=== PATIENT | female | born 1995 | race Caucasian/White ===

== ENCOUNTER → 2019-07-25 17:41 | Outpatient (CLI) | payer OTHER, SELFPAY ==
--- NOTE | 2019-07-25 17:43 | DI.US.S_ITS ---
PROCEDURE: US OB <= 14 WEEKS FETUS INDICATIONS: VIABILITY AND DATING OUTSIDE/PRIOR DATING DATA: Last menstrual period (LMP): 05/09/19. LMP-based estimated date of delivery (LORRAINE): 02/13/20. First dating scan (date and location): This study. Estimated date of delivery (LORRAINE) from first dating scan: 02/12/20, plus or -5 days. TECHNIQUE: Real-time scanning was performed of the fetus and maternal pelvic organs, with image documentation. COMPARISON: None. FINDINGS: Embryo: Heart rate 163 beats per minute, maternal cervical length 5 cm. [place]-rump length 4.3 cm which correlates with a gestational age of 11 weeks 1 day, plus or -5 days. Measurement variability in dating: +/- 4 weeks by LMP, +/- 7 days by mean sac diameter (use before 6 weeks gestation if crown-rump length not able to be measured), +/- 5 days by crown-rump length (up to 8 weeks 6 days gestation), +/- 7 days by crown-rump length (up to 13 weeks 6 days gestation). Maternal organs: Ovaries not seen.. Limited images through the kidneys demonstrate no hydronephrosis. IMPRESSION: Single living intrauterine gestation with a delivery date projected B. centered on 02/12/20, plus or -5 days. Followup anatomic survey at approximately 20 weeks gestation is recommended. Dictated by: Eliceo Miranda M.D. on 07/26/2019 at 8:40 Approved by: Eliceo Miranda M.D. on 07/26/2019 at 8:43
== END ==
PROVIDERS: Referring Provider Obstetrics & Gynecology; Visit Provider Obstetrics & Gynecology
DX: Z36.87 Encounter for antenatal screening for uncertain dates (principal); Z34.81 Encounter for supervision of other normal pregnancy, first trimester; Z3A.11 11 weeks gestation of pregnancy
CPT/HCPCS: 76801

== ENCOUNTER → 2019-07-31 09:17 | Outpatient (CLI) | payer OTHER, SELFPAY ==
[2019-07-31 11:20] LABS: Appearance Urine UA CLOUDY; Bilirubin Urine UA NEGATIVE (NEGATIVE); Color Urine UA YELLOW; Glucose Urine UA NEGATIVE (Negative); Ketones Urine UA NEGATIVE (NEGATIVE); Leukocyte Esterase Urine UA NEGATIVE (NEGATIVE); Nitrite Urine UA NEGATIVE (Negative); Occult Blood Urine UA NEGATIVE (Negative); Protein Urine UA NEGATIVE (Negative); Urobilinogen Urine UA 0.2 E.U./dL (0.2)
[2019-07-31 11:32] LABS: Add Manual Diff / Slide Review NO; Basophils Absolute Auto 100 /uL (0-100); Basophils Percent Auto 0.6 % (0-2); Eosinophils Absolute Auto 100 /uL (0-450); Eosinophils Percent Auto 0.8 % (2-4); Hematocrit 42.8 % (36-46); Hemoglobin 14.9 g/dL (12.0-16.0); Lymphocytes Absolute Auto 1700 /uL (1100-4500); Lymphocytes Percent Auto 18.1 % (25-40); Mean Corpuscular HGB Conc 34.7 % (30-36); Mean Corpuscular Hemoglobin 29.3 PG (26-34); Mean Corpuscular Volume 84.5 fL (80-100); Monocytes Absolute Auto 700 /uL (0-900); Monocytes Percent Auto 7.3 % (3-14); Neutrophils Absolute Auto 6800 /uL (1500-7000); Neutrophils Percent Auto 73.2 % (50-75); Platelet Count 173 X10^3/uL (150-400); Red Blood Cell Count 5.06 X10^6/uL (4.0-5.2); Red Cell Distribution Width 14.5 % (11.6-14.8); White Blood Cell Count 9.3 X10^3/uL (4.5-11.0)
[2019-07-31 11:44] LABS: pH Urine UA 7.5 (4.5-8.0)
[2019-08-01 16:14] LABS: RPR Screen Non Reactive (Non Reactive); Varicella IgG Antibody 1257 index (Immune >165)
[2019-08-01 16:40] LABS: Hepatitis B Surface Antigen NEGATIVE s/c (NEGATIVE); Rubella Antibody IgG 77.4 IU/mL (>15)
[2019-08-01 16:56] LABS: HIV 1 & 2 Ab/Ag 4th Gen Combo NEGATIVE (NEGATIVE); Hep C Virus Ab w/Reflex Quant NEGATIVE s/c (NEGATIVE)
== END ==
PROVIDERS: Referring Provider Obstetrics & Gynecology; Visit Provider Obstetrics & Gynecology
DX: Z34.01 Encounter for supervision of normal first pregnancy, first trimester (principal)
CPT/HCPCS: 36415; 80055; 81003; 86787; 86803; 86850; 86900; 86901; 87086; 87389

== ENCOUNTER → 2019-09-03 08:56 | Outpatient (CLI) | payer OTHER, SELFPAY ==
[2019-09-05 20:09] LABS: AFP, Serum 55.1 ng/mL (.); Calc Gestational Age Ultrasound (.); Estriol, Free 1.25 ng/mL (.); Inhibin A, Dimeric 109.09 pg/mL (.); Inhibin A, MoM 0.63 (.); Maternal Ethnicity Caucasian (.); Maternal Weight 139 lbs (.); Number of Fetuses No (.); OSBR Risk 1 IN 3311 (.); Results Report (.); Test Results *Screen Negative* (.); hCG, MoM 0.82 (.); hCG, Serum 30178 mIU/mL (.)
== END ==
PROVIDERS: Referring Provider Obstetrics & Gynecology; Visit Provider Obstetrics & Gynecology
DX: Z34.02 Encounter for supervision of normal first pregnancy, second trimester (principal); Z3A.16 16 weeks gestation of pregnancy
CPT/HCPCS: 36415; 82105; 82677; 84702; 86336

== ENCOUNTER → 2019-09-30 07:42 | Outpatient (CLI) | payer OTHER, SELFPAY ==
--- NOTE | 2019-09-30 07:43 | DI.US.S_ITS ---
PROCEDURE: US OB >= 14 WEEKS FETUS INDICATIONS: ANATOMY SCAN OUTSIDE/PRIOR DATING DATA: Last menstrual period (LMP): 05/09/2019. LMP-based estimated date of delivery (LORRAINE): 02/13/2020 First dating scan (date and location): 07/25/2019 Estimated date of delivery (LORRAINE) from first dating scan: 02/12/2020 TECHNIQUE: Real-time scanning was performed of the fetus, with image documentation and biometric measurements. COMPARISON: [facility], , OB <= 14 WEEKS FETUS, 07/25/2019, 17:53. FINDINGS: General: A single live intrauterine gestation is present. Presentation: Vertex. Placenta: Placental position is posterior , without previa. Amniotic fluid index: 9.7 cm, normal range is 5-24 cm. heart rate: 139 beats per minute. Maternal cervical canal: 3.5 cm long. Normal lower limit is 2.5 cm. biometrics: Biparietal diameter: 4.97 cm equals 21 weeks 0 days Head circumference: 18.86 cm equals 21 weeks 1 day Abdominal circumference: 15.46 cm equals 20 weeks 4 days Femur length: 3.31 cm equals 20 weeks 2 days Estimated gestational age from initial scan: 20 weeks 5 days Composite gestational age from present scan: 20 weeks 5 days Estimated weight and percentile: 364 g, 38th percentile Measurement variability for biometric dating: +/- 7 days from 14 weeks to 15 weeks 6 days gestation, +/- 10 days from 16 weeks to 21 weeks 6 days gestation, +/- 2 weeks from 22 weeks to 27 weeks 6 days gestation, +/- 3 weeks for 28 weeks gestation or later. weight reference: 4500 g or EFW >90/95% is considered macrosomia or large for gestational age. EFW <10% is small for gestational age. EFW 5% or less is considered intra-uterine growth restriction. Anatomic survey: Neuro: Ventricles are non-dilated at less than 10 mm. Cisterna magna is normal at 3-11 mm. Cerebellum is normal in size and morphology. Nuchal skin fold: Normal at less than 6 mm between 14-21 weeks gestational age. Face: Nose and lips, facial profile are normal. Spine: No evidence for spina bifida. Heart: 4-chambered heart is present, with normal ventricular outflow tracts. Diaphragm: Diaphragm is intact. Stomach: Left-sided stomach is present. Kidneys: No hydronephrosis. Normal is less than 5 mm in 2nd trimester, less than 7 mm in 3rd trimester. Cord: 3-vessel cord has orthotopic insertion. Bladder: Normal in size. Extremities: All 4 extremities identified. IMPRESSION: A single live intrauterine is seen. No anatomic abnormalities are identified. Normal interval growth when compared to the prior ultrasound examination. Dictated by: Gerardo Hua M.D. on 09/30/2019 at 9:40 Approved by: Gerardo Hua M.D. on 09/30/2019 at 9:43
== END ==
PROVIDERS: Referring Provider Obstetrics & Gynecology; Visit Provider Obstetrics & Gynecology
DX: Z34.02 Encounter for supervision of normal first pregnancy, second trimester (principal); Z3A.20 20 weeks gestation of pregnancy
CPT/HCPCS: 76811

== ENCOUNTER → 2019-11-12 16:22 | Outpatient (CLI) | payer OTHER, SELFPAY ==
[2019-11-12 18:40] LABS: Hematocrit 35.4 % (36-46)
[2019-11-12 18:46] LABS: GTT (PREG) 1 Hour PP 50gm Dose 98 mg/dL (76-139)
== END ==
PROVIDERS: PCP Obstetrics & Gynecology; Referring Provider Obstetrics & Gynecology; Visit Provider Obstetrics & Gynecology
DX: Z34.02 Encounter for supervision of normal first pregnancy, second trimester (principal); Z3A.26 26 weeks gestation of pregnancy
CPT/HCPCS: 36415; 82950; 85014; 85018

== ENCOUNTER → 2020-01-08 17:08 | Outpatient (CLI) | payer OTHER, SELFPAY ==
[2020-01-09 19:11] LABS: Strep Grp B PCR NEG for Grp B Strep
== END ==
PROVIDERS: PCP Obstetrics & Gynecology; Visit Provider Obstetrics & Gynecology
DX: Z34.03 Encounter for supervision of normal first pregnancy, third trimester (principal); Z3A.35 35 weeks gestation of pregnancy
CPT/HCPCS: 87653

== ENCOUNTER 2020-02-14 13:44 | Outpatient (CLI) | payer OTHER, SELFPAY | END 2020-02-14 14:28 | disposition home or self-care (01) | LOC: LABOR 13:47 → OB 02-17 10:43 | PROVIDERS: Referring Provider Obstetrics & Gynecology; Visit Provider Obstetrics & Gynecology | DX: O48.0 Post-term pregnancy (principal); Z3A.40 40 weeks gestation of pregnancy | CPT/HCPCS: 59025; G0378; G0379 ==

== ENCOUNTER 2020-02-17 14:17 | Outpatient (CLI) | payer OTHER, SELFPAY ==
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
== END 2020-02-17 14:58 | disposition home or self-care (01) ==
LOC: LABOR 14:31 → OB 02-18 09:11
PROVIDERS: Referring Provider Obstetrics & Gynecology; Visit Provider Obstetrics & Gynecology
DX: O48.0 Post-term pregnancy (principal); Z3A.40 40 weeks gestation of pregnancy
CPT/HCPCS: 59025; G0378; G0379

== ENCOUNTER 2020-02-19 10:53 | Observation (INO) | payer OTHER, SELFPAY | END 2020-02-19 12:15 | disposition home or self-care (01) | PROVIDERS: Admitting Provider Obstetrics & Gynecology; Referring Provider Obstetrics & Gynecology; Visit Provider Obstetrics & Gynecology | DX: O48.0 Post-term pregnancy (principal); Z3A.40 40 weeks gestation of pregnancy | CPT/HCPCS: 59025; G0378; G0379 ==

== ENCOUNTER 2020-02-19 18:18 | Inpatient (IN) | payer OTHER, SELFPAY ==
[2020-02-19 19:35] VITALS: BP 130/80
[2020-02-19] MEDS: LACTATED RINGERS 1,000 ML 125 ML IV (20:00)
[2020-02-19 20:28] LABS: Add Manual Diff / Slide Review NO; Basophils Absolute Auto 100 /uL (0-100); Basophils Percent Auto 1.1 % (0-2); Eosinophils Absolute Auto 0 /uL (0-450); Eosinophils Percent Auto 0.3 % (2-4); Hematocrit 40.2 % (36-46); Hemoglobin 13.7 g/dL (12.0-16.0); Lymphocytes Absolute Auto 2100 /uL (1100-4500); Lymphocytes Percent Auto 17.3 % (25-40); Mean Corpuscular HGB Conc 34.1 % (30-36); Mean Corpuscular Hemoglobin 28.7 PG (26-34); Mean Corpuscular Volume 84.1 fL (80-100); Monocytes Absolute Auto 1000 /uL (0-900); Neutrophils Absolute Auto 8900 /uL (1500-7000); Neutrophils Percent Auto 73.3 % (50-75); Platelet Count 209 X10^3/uL (150-400); Red Blood Cell Count 4.77 X10^6/uL (4.0-5.2); Red Cell Distribution Width 14.9 % (11.6-14.8); White Blood Cell Count 12.1 X10^3/uL (4.5-11.0)
[2020-02-19 20:45] LABS: COVID19 -Nasal RAPID Negative (Negative)
[2020-02-19] MEDS: OXYTOCIN PREMIX 30 UNIT/500 ML PLAST..BAG IV (21:17)
[2020-02-20] MEDS: LACTATED RINGERS 1,000 ML 125 ML IV ×2 (01:05→08:01)
[2020-02-20] MEDS: FENT 2MCG/ML BUPIV 0.125% EPI 200 MCG/100 ML PLAST..BAG 13 MCG EPIDURAL (04:49)
[2020-02-20] MEDS: ONDANSETRON 4 MG/2 ML INJ IV (06:22)
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
--- NOTE | 2020-02-20 13:19 | PM.OBPRVD ---
Events: Labor Induction Labor & Delivery Delivery date: 02/20/20 Intrapartal events: None Cervical ripening method: none Induction method: per pitocin protocol Delivery augmentation: rupture of membranes Delivery monitor: external FHT and external uterine Route of delivery: Episiotomy description: None L&D Laceration Description: Superficial (Bilateral labial and vaginal) Delivery repair: chromic Estimated blood loss (mL): 100 Anesthesia Type: Epidural Complications: None Narrative: Patient complete and pushed for 2-1/2 hours. At 12:45 p.m., a live female infant delivered spontaneously over an intact perineum. No nuchal cord. The remainder of the body delivered without difficulty and was placed on mom's abdomen. The cord was double clamped and cut after it stopped pulsing. Cord bloods were obtained. The placenta delivered intact with a three-vessel cord at 12:52 p.m.. Pitocin was given in the IV fluids prior to placental delivery and after the cord was double clamped and cut. Fundus was massaged to firm. Bilateral superficial labial and a superficial vaginal mucosa tear were repaired with 4 0 chromic in the usual fashion. Hemostasis was achieved. Apgars 9 at 1 minute and 9 at 5 minutes. Epidural analgesia. . Mom and infant stable to recovery. Baby 1: Infant gender: Female Presentation: vertex Position: Left Occiput Anterior Placenta delivery description: Spontaneous Cord Vessel Description: 3 Vessels score (1 min): 9 score (5 min): 9 Plan for aftercare: To routine care
[2020-02-20] MEDS: IBUPROFEN 600 MG TABLET PO (23:11)
[2020-02-20] MEDS: LANOLIN OINT 7 GM 1 APPLIC TOP (23:11)
[2020-02-20] MEDS: DERMOPLAST SPRAY 20% 60 ML 1 SPRAY TOP (23:12)
[2020-02-21 05:21] LABS: Hematocrit 35.5 % (36-46); Hemoglobin 11.8 g/dL (12.0-16.0)
[2020-02-21] MEDS: PRENATAL VIT,CALC/IRON/FOLIC 1 TABLET 1 TAB PO (07:44)
[2020-02-21] MEDS: DOCUSATE 100 MG CAPSULE PO (07:44)
[2020-02-21] MEDS: IBUPROFEN 600 MG TABLET PO (07:45)
--- NOTE | 2020-02-21 09:14 | PM.OBDS.1 ---
Discharge Providers Provider Date of admission: 02/19/20 18:18 Discharge Date: 02/21/20 Primary care physician: Doctor Camden MD Consults: 02/21/20 13:27 Consult to Bilingual Customer Service Specialist Routine Comment: Discharge provider: Winter Rice MD Summary Hospital Course Date Patient Seen: 02/21/20 Time Patient Seen: 09:15 Procedures: Pitocin induction, epidural catheter, spontaneous vaginal delivery, repair of superficial vaginal and perineal tears Hospital Course: Patient was admitted for induction for postdates. She received Pitocin. She received an epidural catheter for pain control. She had a spontaneous vaginal delivery. She is doing well. She is ambulatory. She is breast-feeding without difficulty. Mild lochia. No headaches, scotomata, epigastric pain. Peripartum Data Infant Delivery Method: Natural Vaginal Laceration Description: Perineal - 1st Degree and Vaginal - 1st Degree Procedures: Pitocin induction of labor, epidural catheter, spontaneous vaginal delivery, repair of superficial vaginal and perineal tears complications: none 1: Gender: Female Disposition of : home Discharge Diagnosis (1) Vaginal delivery: Status: Acute Status at Discharge Cognitive/behavioral status at discharge: oriented Overall status at discharge: patient is progressing back to baseline Time Spent with Patient Time attestation: Total time spent providing and/or coordinating discharge services: Time spent: Less than 30 minutes Objective Labs Result Diagrams: 02/21/20 05:00 Labs: Laboratory Results - last 24 hr 02/21/20 05:00 Hgb 11.8 L Hct 35.5 L Exam Vital Signs (past 8 hours): Blood pressure 110/69, pulse of 58, temperature 97.2? Narrative Exam Narrative: Abdomen is soft, nontender. Uterus is firm, at U, nontender. Mild lochia. Extremities without edema and nontender. Patient's blood type is O positive, she is rubella immune, she received Tdap in the 3rd trimester. Discharge Plan Discharge Plan Patient Disposition: Home Discharge orders & Medications Prescriptions: Continued prenat.vits,alberto,[id number] Tablet 1 tab PO DAILY RF: 0 Follow up/Referrals: Corie Hickman MD [Physician] - 6 Weeks (Please call on MondayFebruary 23 to make an appointment or if you have any questions or concerns.) Diet/Activity/Treatments Diet: Regular Activity: Nothing in vagina for 6 weeks Skin/Wound/Dressing Care Report to your healthcare provider any signs of infection, such as:: chills, fever and increased pain Discharge Data Primary Care Provider: Miscellaneous,Doctor
[2020-02-21 09:54] VITALS: BP 110/69; PULSE 58; RESP 16; TEMP 36.2
== END 2020-02-21 11:20 | disposition home or self-care (01) | DRG 807 ==
PROVIDERS: Admitting Provider Obstetrics & Gynecology; Referring Provider Obstetrics & Gynecology; Visit Provider Obstetrics & Gynecology
DX: O48.0 Post-term pregnancy (principal); Z37.0 Single live birth; Z3A.41 41 weeks gestation of pregnancy; O70.0 First degree perineal laceration during delivery; Z20.828 Contact with and (suspected) exposure to other viral communicable diseases
CPT/HCPCS: 01967; 36415; 59025; 59050; 59400; 85014; 85018; 85025; 86850; 86900; 86901; 87635; G0378; G0379; J2405; J2590

== ENCOUNTER 2021-12-10 07:58 | Inpatient (IN) | payer OTHER, SELFPAY ==
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
--- NOTE | 2021-12-10 08:35 | P.PCNOB_ITS ---
Labor & Delivery Delivery date: 12/10/21 Intrapartal Events: Precipitous Labor < 3 hours Cervical ripening method: none Induction method: none Delivery monitor: external FHT Route of delivery: Episiotomy description: None L&D Laceration Description: None Estimated blood loss (mL): 25 Quantitative Blood Loss: 25 Anesthesia Type: None Narrative: Lisa came in actively pushing in spontaneous, precipitous labor.? Was assisted to bed from wheelchair with BBOW protruding from vagina.? Next contraction and spontaneous push led to NSVB of a vigorous baby girl in direct OA position.? There was no nuchal cord and the shoulders delivered easily.? 4 handed catch with CNM and student nurse-guest services associate (SNM).? was placed on maternal abdomen for drying and skin to skin.? After cessation of pulsation, the cord was double clamped and cut by SNM.? Cord blood sample was collected.? Gentle cord traction and single maternal push led to spontaneous, Schultze delivery of an apparently intact placenta, membranes and 3VC.? Fundus immediately firm and bleeding scant.? Vagina and perineum inspected and intact.? QBL 25mL.? Both mother and baby stable and skin to skin as I left the room.? Baby 1: Infant gender: Female Presentation: vertex Placenta delivery description: Spontaneous Cord Vessel Description: 3 Vessels score (1 min): 9 score (5 min): 9 weight: 3.159 kg Narrative: Direct OA presentation Plan for aftercare: Routine care
[2021-12-10 08:40] VITALS: BP 130/75
[2021-12-10 08:40] LABS: COVID19 -Nasal RAPID Negative (Negative)
[2021-12-10] MEDS: IBUPROFEN 600 MG TABLET PO ×2 (08:57→15:04)
[2021-12-10] MEDS: ACETAMINOPHEN 325 MG TABLET 650 MG PO ×2 (08:57→15:05)
[2021-12-10] MEDS: DERMOPLAST SPRAY 20% 60 ML 1 SPRAY TOP (08:58)
[2021-12-10] MEDS: ONDANSETRON 4 MG ODT SL (11:42)
--- NOTE | 2021-12-10 12:47 | P.DS_ITS ---
Discharge Providers Provider Date of admission: 12/10/21 07:58 Discharge Date: 12/10/21 Consults: 12/11/21 08:11 Consult to Service Restorer Emergency Routine Comment: Discharge provider: Uma Reynolds CNM Summary Hospital Course Date Patient Seen: 12/10/21 Time Patient Seen: 12:50 Diagnoses: O80.0 Hospital Course: 5 hours s/p precipitous NSVB. Voiding, ambulating and indepen dently and eager for discharge to home [place]. Minimal pain is well controlled with PO medication. Vaginal bleeding is scant, without clots. is present and supportive. They live 5 minute from the hospital and agree to bring their back at 24 hours for routine screening. Peripartum Data Infant Delivery Method: Natural Vaginal Laceration Description: None Episiotomy description: None Procedures: O80.0 complications: none [place] 1: Gender: Female Disposition of : home Discharge Diagnosis (1) Encounter for full-term uncomplicated delivery: Start Date: 12/10/21 Start Time: 07:58 Status: Acute Problem Details: routine course Status at Discharge Cognitive/behavioral status at discharge: oriented and calm Functional status at discharge: independent ambulation Overall status at discharge: patient is progressing back to baseline Time Spent with Patient Time attestation: Total time spent providing and/or coordinating discharge services: Objective Labs Labs: Laboratory Results - last 24 hr 12/10/21 08:15 SARS-CoV-2 (PCR) Negative Exam Vital Signs (past 8 hours): - 12/10/21 08:40 Blood Pressure 130/75 VS @ 1130: BP 113/70mmHg, HR 73bpm, RR 18/min, T 98.4F Temporal, SpO2 98% on RA Other: Fundus firm @ u-1, lochia scant. Perineum intact with minimal swelling. Discharge Plan Discharge Plan Patient Disposition: Home Provider Discharge Comment: at 6 hours PP Discharge orders & Medications Prescriptions: New ibuprofen 600 mg Tablet 600 mg PO Q6HR PRN (Reason: Pain, Mild (1-3)) 14 Days Qty: 40 0RF Continued prenat.vits,alberto,[id number] Tablet 1 tab PO DAILY Follow up/Referrals: Uma Reynolds CNM [Advanced Plant Health Manager] - (Follow-up phone call at 2 weeks on 12/24/21 @ 9:45am Follow-up in office at 6 weeks on 01/19/22 @ 3:15pm) Diet/Activity/Treatments Diet: Regular Activity: pelvic rest x 6 weeks Skin/Wound/Dressing Care Report to your healthcare provider any signs of infection, such as:: chills, fever, increased pain, unusual drainage and unusual redness Visit Report/Discharge Packet Instructions: DI for Depression
== END 2021-12-10 16:10 | disposition home or self-care (01) | DRG 807 ==
PROVIDERS: Admitting Provider Nurse Practitioner Obstetrics & Gynecology; Referring Provider Nurse Practitioner Obstetrics & Gynecology; Visit Provider Nurse Practitioner Obstetrics & Gynecology
DX: O62.3 Precipitate labor (principal); Z37.0 Single live birth; Z3A.39 39 weeks gestation of pregnancy; Z20.822 Contact with and (suspected) exposure to COVID-19
CPT/HCPCS: 87635; C9803; G0379